=== PATIENT | female | born 1990 | race Caucasian/White ===

== ENCOUNTER 2020-04-13 02:45 | Emergency (ER) | payer SELFPAY ==
[~2020-04-13] VITALS: Ht 162.6 cm; Wt 54.4 kg
--- NOTE | 2020-04-13 03:50 | NUR ---
PATIENT WAS MSE BY DR LOTT IN ROOM 04A.
[2020-04-13 04:20] LABS: *URINE HCG, QUAL NEGATIVE (NEGATIVE)
--- NOTE | 2020-04-13 04:22 | NUR ---
Patient does not wish to proceed with medical care recommended by Dr. Cowan. Patient given verbal information related to possible complications, up to and including , which could occur as a result of leaving the hospital at this time. Patient verbalizes understanding of risks involved due to leaving against medical advice. Patient has refused to sign AMA form, with 2 nurses signing as witness. Pt ambulated out of the ED in steady gait.
--- NOTE | 2020-04-13 04:23 | NUR ---
Patient does not wish to proceed with medical care recommended by Dr. Cowan. Patient given information related to possible complications, up to and including , which could occur as a result of leaving the hospital at this time. Patient verbalizes understanding of risks involved due to leaving against medical advice. Patient has signed AMA form.
== END 2020-04-13 04:26 | disposition left against medical advice (07) ==
LOC: ER 02:53
DX: M48.9 Spondylopathy, unspecified (principal)
CPT/HCPCS: 84703; A4663

== ENCOUNTER 2024-08-20 14:10 | Emergency (ER) | payer OTHER ==
[~2024-08-20] VITALS: Ht 162.6 cm; Wt 52.6 kg
[2024-08-20] MEDS ORDERED: DOXYCYCLINE HYCLATE 100 MG TABLET ONE (14:37)
[2024-08-20] MEDS: DOXYCYCLINE HYCLATE 100 MG TABLET PO ONE (14:38)
[2024-08-20] MEDS ORDERED: DOXY100T2 PO (14:39)
[2024-08-20 14:54] VITALS: BP 102/60; TEMP 98.7; O2SAT 99
== END 2024-08-20 14:50 | disposition home or self-care (01) ==
LOC: ER 14:10
DX: L98.498 Non-pressure chronic ulcer of skin of other sites with other specified severity (principal); F17.200 Nicotine dependence, unspecified, uncomplicated; Z59.00 Homelessness unspecified; Z88.0 Allergy status to penicillin
CPT/HCPCS: A4606; A4663